=== PATIENT | male | born 1990 | race Hispanic/Latino ===

== ENCOUNTER 2021-05-06 13:55 | Emergency (ER) | payer SELFPAY ==
[~2021-05-06] VITALS: Ht 177.8 cm; Wt 100.0 kg
[~2021-05-06 13:55] MED LIST: NO MEDS; ULTRAM50 MG OR
[2021-05-06] MEDS ORDERED: KEFLEX500 MG PO (15:29)
[2021-05-06 15:50] VITALS: BP 144/90
== END 2021-05-06 15:50 | disposition home or self-care (01) | DRG 605 ==
LOC: ED 13:55
PROC: 0HQMXZZ Repair Right Foot Skin, External Approach (ICD-10-PCS; principal; 2021-05-06)
PROC: 0HQLXZZ Repair Left Lower Leg Skin, External Approach (ICD-10-PCS; 2021-05-06)
DX: S81.812A Laceration without foreign body, left lower leg, initial encounter (principal); S91.311A Laceration without foreign body, right foot, initial encounter; W31.1XXA Contact with metalworking machines, initial encounter; Y93.89 Activity, other specified; Y92.009 Unspecified place in unspecified non-institutional (private) residence as the place of occurrence of the external cause

== ENCOUNTER 2021-05-16 07:47 | Emergency (ER) | payer SELFPAY ==
[~2021-05-16] VITALS: Ht 177.8 cm; Wt 113.0 kg
[~2021-05-16 07:47] MED LIST changes: +KEFLEX500 MG PO
[2021-05-16] MEDS ORDERED: CEPHALEXIN500 M1 PO (08:27)
[2021-05-16 08:35] VITALS: BP 125/72
== END 2021-05-16 08:52 | disposition home or self-care (01) | DRG 950 ==
LOC: ED 07:47
DX: S81.812D Laceration without foreign body, left lower leg, subsequent encounter (principal); S91.311D Laceration without foreign body, right foot, subsequent encounter; X58.XXXD Exposure to other specified factors, subsequent encounter

== ENCOUNTER 2021-10-21 16:16 | Emergency (ER) | payer SELFPAY ==
[~2021-10-21] VITALS: Ht 182.9 cm; Wt 113.6 kg
[~2021-10-21 16:16] MED LIST changes: +CEPHALEXIN500 M1 PO
[2021-10-21 16:38] VITALS: BP 122/81
[2021-10-21 16:45] VITALS: BP 125/83
[2021-10-21 17:01] VITALS: BP 128/91
[2021-10-21] MEDS ORDERED: BACTRIM DS1 TAB PO (17:10)
[2021-10-21] MEDS ORDERED: KEFLEX500 MG PO (17:10)
[2021-10-21] MEDS ORDERED: MUPIROCIN2 % EX (17:13)
[2021-10-21 17:15] VITALS: BP 141/91
[2021-10-21 17:30] VITALS: BP 141/91
== END 2021-10-21 17:30 | disposition home or self-care (01) | DRG 156 ==
LOC: ED 16:16
DX: J34.89 Other specified disorders of nose and nasal sinuses (principal)

== ENCOUNTER 2021-11-03 18:54 | Emergency (ER) | payer SELFPAY ==
[~2021-11-03] VITALS: Ht 182.9 cm; Wt 113.0 kg
[~2021-11-03 18:54] MED LIST changes: +BACTRIM DS1 TAB PO; +MUPIROCIN2 % EX
[2021-11-03 19:11] VITALS: BP 128/78
[2021-11-03 19:30] VITALS: BP 117/67
[2021-11-03 19:46] LABS: HEMATOCRIT 40.7 % (39.0-50.0); IMMATURE GRANULOCYTES 0.2 % (0.0-5.0); MEAN CELL VOLUME 82.9 fL CALC (80.0-100.0); MEAN CORPUSCULAR HGB 28.5 pG CALC (26.0-32.0); MEAN CORPUSCULAR HGB CONC 34.4 g/dL CAL (32.0-36.0); NEUT# 4.22 thou/uL (1.82-7.42); RED BLOOD COUNT 4.91 mill/uL (4.70-6.10); RED CELL DISTRI WIDTH 12.2 % (11.5-15.5)
[2021-11-03 20:01] VITALS: BP 109/61
[2021-11-03 20:04] LABS: ALBUMIN 4.2 g/dL (3.2-5.0); ALKALINE PHOSPHATASE 76 u/l (38-126); ANION GAP 14 (6-22 (CALC)); BILIRUBIN, TOTAL 1.3 mg/dL (0.0-1.4); BUN 11 mg/dL (9-20); BUN/CREATININE RATIO 13 (12-20 (CALC)); CARBON DIOXIDE 22 mmol/l (22-30); CHLORIDE 101 mmol/l (95-108); CREATININE 0.9 mg/dL (0.7-1.3); GFR > 60 ML/MIN (>=60 (CALC)); GFR FOR AFR.AMER. > 60 ML/MIN (>=60 (CALC)); POTASSIUM 3.5 mmol/l (3.5-5.1); SGOT/AST 45 u/l (17-59); SODIUM 134 mmol/l (137-146)
[2021-11-03 20:30] VITALS: BP 109/62
[2021-11-03 20:42] LABS: URINE BILIRUBIN - DIPSTICK NEGATIVE (NEGATIVE); URINE BLOOD DIPSTICK NEGATIVE (NEGATIVE); URINE COLOR YELLOW; URINE GLUCOSE - DIPSTICK NEGATIVE (NEGATIVE); URINE KETONE TRACE mg/dL (NEGATIVE); URINE LEUK ESTERASE NEGATIVE (NEGATIVE); URINE PH 7.5 (4.5-8.0); URINE PROTEIN - DIPSTICK NEGATIVE (NEG-TRACE); URINE UROBILINOGEN - DIPSTICK 0.2 E.U./dL (0.2)
[2021-11-03 20:44] LABS: URINE NITRITE - DIPSTICK NEGATIVE (Negative)
[2021-11-03 21:00] VITALS: BP 113/63
[2021-11-03] MEDS ORDERED: MIRALAX17 GM PO (21:09)
[2021-11-03 21:14] VITALS: BP 113/63
== END 2021-11-03 21:22 | disposition home or self-care (01) | DRG 866 ==
LOC: ED 18:54
PROVIDERS: Emergency Medicine
DX: B34.9 Viral infection, unspecified (principal); K59.00 Constipation, unspecified; Z20.822 Contact with and (suspected) exposure to COVID-19